=== PATIENT | male | born 1980 | race Two or more races ===

== ENCOUNTER 2019-12-03 02:40 | Emergency (ER) | payer SELFPAY ==
[~2019-12-03] VITALS: Ht 167.6 cm; Wt 77.1 kg
--- NOTE | 2019-12-03 02:48 | NUR ---
EUSEBIO 76 FROM FOR MET OVERDOSE. 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 PENDING ER DOCTOR SRINATH
[2019-12-03 02:59] LABS: BASOPHILS # (AUTO) 0.1 /CMM (0.0-0.2); BASOPHILS % (AUTO) 0.5 % (0.0-2.0); EOSINOPHILS % (AUTO) 0.6 % (0.0-6.0); HEMATOCRIT 41 % (39-51); HEMOGLOBIN 13.6 g/dL (13.5-17.5); LYMPHOCYTES # (AUTO) 1.8 /CMM (0.8-4.8); LYMPHOCYTES % (AUTO) 17.5 % (20.0-44.0); MEAN CORPUSCULAR HGB CONC 33 g/dl (31.0-36.0); MEAN CORPUSCULAR VOLUME 83 fL (80-96); MONOCYTES # (AUTO) 0.5 /CMM (0.1-1.30); MONOCYTES % (AUTO) 5.4 % (2.0-12.0); NEUTROPHILS # (AUTO) 7.7 /CMM (1.8-8.9); PLATELET COUNT (AUTO) 258 /CMM (150-450); RED BLOOD CELL COUNT(AUTO) 4.91 MIL/uL (4.5-6.0); WHITE BLOOD COUNT (AUTO) 10.1 K/uL (4.3-11.0)
[2019-12-03] MEDS ORDERED: IV NS 0.9% 1,000 ML BAG IV ONE (03:00)
[2019-12-03 03:09] LABS: CARBON DIOXIDE 26 mmol/L (21-32); CHLORIDE 102 mmol/L (98-107); CREATININE 0.9 mg/dL (0.6-1.3); GLUCOSE 101 mg/dL (74-106); POTASSIUM 3.6 mmol/L (3.5-5.1); SODIUM SERUM 138 mmol/L (136-145); UREA NITROGEN, BLOOD 24 mg/dL (7-18)
[2019-12-03 03:17] LABS: ALANINE AMINOTRANSFERASE 19 U/L (12-78); ALBUMIN 3.5 g/dL (3.4-5.0); ALCOHOL, BLOOD < 3 mg/dL (0-0); ALKALINE PHOSPHATASE 79 U/L (46-116); ASPARTATE AMINOTRANSFERASE 20 U/L (15-37); BILIRUBIN,DIRECT 0.1 mg/dL (0.0-0.2); BILIRUBIN,TOTAL 0.3 mg/dL (0.2-1.0); SALICYLATE 3.7 mg/dL (2.8-20.0); TOTAL PROTEIN, SERUM 7.4 g/dL (6.4-8.2)
[2019-12-03 03:19] LABS: ACETAMINOPHEN 0 ug/ml (10-30)
--- NOTE | 2019-12-03 04:00 | NUR ---
PT SLEEPING, VSS, NAD NOTED.
--- NOTE | 2019-12-03 05:20 | NUR ---
Patient given written and verbal discharge instructions. Patient verbalizes understanding of instructions. Patient is ambulatory with steady gait. Refuses offer of residential placement. Patient given list of available shelters in surrounding area. Patient discharged to home in stable condition. Written and verbal after care instructions given. Patient verbalizes understanding of instruction.
[2019-12-03 05:21] VITALS: BP 132/90
== END 2019-12-03 05:20 | disposition home or self-care (01) ==
LOC: ER 02:43
DX: F10.10 Alcohol abuse, uncomplicated (principal); R45.1 Restlessness and agitation; Y90.0 Blood alcohol level of less than 20 mg/100 ml; Z59.0 Homelessness
CPT/HCPCS: 36415; 80048; 80076; 80307; 80329; 85025; 99283; G0480; J7030